=== PATIENT | female | born 1970 | race Caucasian/White ===

== ENCOUNTER → 2016-06-08 | Outpatient (CLI) | payer OTHER ==
--- NOTE | 2016-06-08 10:55 | REP ---
LEFT KNEE, FIVE VIEWS: HISTORY: Fall. COMPARISON: 11/12/2013. There is no acute fracture or dislocation. The joint spaces are normal in appearance. IMPRESSION: There is no acute fracture or dislocation. Signed by Kraig Quiroga MD 06/08/2016 11:10 A
== END ==
LOC: M WUC 10:04
PROVIDERS: ATTEND Physician Assistant
DX: S80.02XA Contusion of left knee, initial encounter (principal); X58.XXXA Exposure to other specified factors, initial encounter; Y92.89 Other specified places as the place of occurrence of the external cause; Y93.89 Activity, other specified; Y99.8 Other external cause status

== ENCOUNTER 2016-06-10 18:17 | Emergency (ER) | payer OTHER ==
[2016-06-10] MEDS ORDERED: ONDANSETRON 4 MG ORAL DISINTEGRATING TAB (S0181) As Ordered ONE (18:48)
[2016-06-10] MEDS ORDERED: KETOROLAC 30 MG/ML VIAL (J1885) As Ordered ONE (18:48)
--- NOTE | 2016-06-10 19:51 | EDDOCDS ---
Physician Documentation [facility] Name: Shabana Aguilar Age: 45 yrs Sex: Female : 1970 Arrival Date: 06/10/2016 Time: 18:17 Bed I10 / 23 Private MD: Suni Yu M. Disposition: 06/10/16 19:33 Discharged to Home/Self Care. Impression: Viral infection, unspecified - viral syndrome/gastroenteritis. - Condition is Stable. - Discharge Instructions: Viral Gastroenteritis, Viral Infections. - Prescriptions for ZOFRAN ODT 4 mg - dissolve 1 tablet by ORAL route 4 times per day As needed do not chew, do not swallow whole; 10 tablet. - Medication Reconciliation, Work Release Form - 5 day, Local Pharmacy Hours form. - Follow up: Suni Yu; When: Call to arrange an appointment; Reason: Recheck today's complaints, Continuance of care. - Problem is new. - Symptoms have improved. - Notes: Keep hydrated Alternate Ibuprofen with Tylenol, as needed, for pain or fever >101.5 Return to the ED for worsening symptoms Historical: - Allergies: Latex; PENICILLINS; - Home Meds: 1. Motrin 800 mg Oral tab 3 times per day (Last dose: 06/09/2016) 2. Zomig ZMT 2.5 mg oral TbDL 1 tab - PMHx: Migraine Headaches; - PSHx: none; - Social history: Smoking status: Patient states was never smoker of tobacco. No barriers to communication noted, The patient speaks fluent Japanese, Speaks appropriately for age. - Family history: Not pertinent. - : The pt / caregiver states he / she is not on anticoagulants. Home medication list is obtained from the patient. - Exposure Risk Screening:: None identified. 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 6 in. (167.64 cm) (R); Pain 5/10; 19:49 BP 112 / 65; Pulse 109; Resp 18; Temp 101.1; Pulse Ox 93% on R/A; Pain 5/10; rn1 18:19 Body Mass Index 31.47 (88.45 kg, 167.64 cm) gr2 MDM: 18:45 Ondansetron ODT Oral Disintegrating Tablet 4 mg PO once ordered. le 18:45 ketorolac 60 mg IM once ordered. le 18:45 Fluid Challenge ordered. le 19:09 Financial registration complete. [facility] 19:14 [facility] Payment Agreement was scanned into [employer] and attached to record. [facility] Administered Medications: 18:52 Drug: Ondansetron ODT 4 mg [ondansetron 4 mg disintegrating tablet (1 tabs)] Route: PO; pml 18:52 Drug: ketorolac 60 mg [ketorolac 30 mg/mL (1 mL) injection solution (2 mL)] Route: IM; pml Site: right gluteus; Signatures: Radha Vargas RN RN srm Westcott, Lisa, AUTOMOTIVE TIRE TESTING SUPERVISOR Ruth Joseph RN RN dsf Quay, Paulina, RN RN pml Hook, Sandra [facility] The chart was reviewed and I authenticate all verbal orders and agree with the evaluation and treatment provided.Attachments: 19:14 [facility] Payment Agreement [facility] MTDD
--- NOTE | 2016-06-10 19:51 | EDDOCDS ---
Nurse's Notes [facility] Name: Shabana Aguilar Age: 45 yrs Sex: Female : 1970 Arrival Date: 06/10/2016 Time: 18:17 Bed I10 / 23 Private MD: Suni Yu M. Diagnosis: Viral infection, unspecified-viral syndrome/gastroenteritis Presentation: 06/10 18:20 Presenting complaint: Patient states: went to urgent care and dx with flu. couldn't get srm to pharmacy to get tamiflu so was told to come here and get a dose. Adult Sepsis Screening: The patient does not have new or worsening altered mentation. Patient's respiratory rate is less than 22. Systolic blood pressure is greater than 100. Patient has a qSOFA score of 0- Negative Sepsis Screen. Suicide/Homicide risk assessment- the patient denies having any suicidal and/or homicidal ideations and does not present with any other emotional, behavioral or mental health complaints. Status: Patient is not a clinical laboratory service teacher or dependent. Transition of care: Patient was received from [facility]. 18:20 Acuity: RAVINDER Level 5 srm 18:20 Method Of Arrival: Walkin/Carried/Asstd srm Triage Assessment: 18:23 General: Appears in no apparent distress, Behavior is appropriate for age, cooperative. srm Pain: Pain currently is 10 out of 10 on a pain scale. HIV screening NA for this visit Offered previously. 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 Motrin 800 mg Oral tab 3 times per day (Last dose: 06/09/2016) 2. Zomig ZMT 2.5 mg oral TbDL 1 tab - PMHx: Migraine Headaches; - PSHx: none; - Social history: Smoking status: Patient states was never smoker of tobacco. No barriers to communication noted, The patient speaks fluent Greek, Speaks appropriately for age. - Family history: Not pertinent. - : The pt / caregiver states he / she is not on anticoagulants. Home medication list is obtained from the patient. - Exposure Risk Screening:: None identified. Screenin:52 Screening information is obtained from the patient. Fall risk: No risks identified. pml Assistance ADL's: requires no assistance with activities of daily living. Abuse/DV Screen: The patient / caregiver reports he/she is: not in a situation that causes fear, pain or injury. Nutritional screening: No deficits noted. Advance Directives: Currently, there is no health care proxy. home support is adequate. Assessment: 18:52 General: Appears well nourished, well groomed, Behavior is appropriate for age, pml cooperative. Pain: Location: body aches. Neurological: Level of Consciousness is awake, alert, Oriented to person, place, time. Cardiovascular: Capillary refill < 3 seconds. Respiratory: Airway is patent Respiratory effort is even, unlabored. GI: Abdomen is non- distended. Derm: Skin is pink, warm & dry. 19:42 General: Appears ill, Behavior is appropriate for age, cooperative. Pain: Location: dsf head Pain currently is 8 out of 10 on a pain scale. Quality of pain is described as aching. Neurological: Level of Consciousness is awake, alert, Oriented to person, place, time. Cardiovascular: Capillary refill < 3 seconds. Respiratory: Airway is patent Respiratory effort is even, unlabored, Respiratory pattern is regular, symmetrical. Derm: Skin is pink, warm & dry. Vital Signs: 18:19 BP 110 / 63; Pulse 122; Resp 18 S; Temp 101.6(O); Pulse Ox 96% on R/A; Weight 88.45 kg gr2 (R); Height 5 ft. 6 in. (167.64 cm) (R); Pain 5/10; 19:49 BP 112 / 65; Pulse 109; Resp 18; Temp 101.1; Pulse Ox 93% on R/A; Pain 5/10; rn1 18:19 Body Mass Index 31.47 (88.45 kg, 167.64 cm) gr2 Vitals: 18:19 Log In Time: June 10, 2016 at 18:19. gr2 ED Course: 18:18 Patient visited by Alverto Jensen. gr2 18:18 Suni Yu is Private Physician. gr2 18:18 Patient moved to Waiting gr2 18:20 Patient visited by Alverto Jensen. gr2 18:20 Patient moved to Pre RCE gr2 18:23 Triage Initiated srm 18:32 [facility] Fore[facility] le 18:32 Patient moved to I10 23 le 18:36 Patient visited by Maria De Jesus Foreman FNP. le 18:36 Patient visited by Maria De Jesus Foreman FNP. le 18:52 The patient / caregiver is instructed regarding the plan of care and ED course. Patient pml has correct armband on for positive identification. Bed in low position. Call light in reach. 18:52 No IV's were initiated during this patient's visit. No procedures done that require pml assistance. 18:54 Patient visited by Mandi Michelle,TARA. pml 19:14 [facility] Payment Agreement was scanned into [employer] and attached to record. [facility] 19:33 Suni Yu is Referral Physician. le Administered Medications: 18:52 Drug: Ondansetron ODT 4 mg [ondansetron 4 mg disintegrating tablet (1 tabs)] Route: PO; pml 18:52 Drug: ketorolac 60 mg [ketorolac 30 mg/mL (1 mL) injection solution (2 mL)] Route: IM; pml Site: right gluteus; Order Results: There are currently no results for this order. Outcome: 19:33 Discharge ordered by Provider. le 19:42 Discharge Assessment: Patient awake, alert and oriented x 3. No cognitive and/or dsf functional deficits noted. Patient verbalized understanding of disposition instructions. patient administered narcotics - no. The following High Risk Discharge criteria are identified: None. Discharged to home ambulatory. Condition: stable. Discharge instructions given to patient, Instructed on discharge instructions, follow up and referral plans. medication usage, Demonstrated understanding of instructions, medications, Pt was receptive of discharge instructions/ teaching. Prescriptions given X 1, Work note provided to patient. No special radiology studies were completed. Property sent home with patient. 19:50 Patient left the ED. dsf Signatures: Radha Vargas, RN TARA [facility] Maria De Jesus Foreman FNP FNP le Fuller, Desiree, RN RN dsf Mandi Michelle,Alverto Padilla RN gr2 Conchita Nolasco [facility] Bronson Box rn1 MTDD
--- NOTE | 2016-06-12 20:51 | EDDOCDS ---
Nurse's Notes [facility] Name: Shabana Aguilar Age: 45 yrs Sex: Female : 1970 Arrival Date: 06/10/2016 Time: 18:17 Bed I10 / 23 Private MD: Suni Yu M. Diagnosis: Viral infection, unspecified-viral syndrome/gastroenteritis Presentation: 06/10 18:20 Presenting complaint: Patient states: went to urgent care and dx with flu. couldn't get srm to pharmacy to get tamiflu so was told to come here and get a dose. Adult Sepsis Screening: The patient does not have new or worsening altered mentation. Patient's respiratory rate is less than 22. Systolic blood pressure is greater than 100. Patient has a qSOFA score of 0- Negative Sepsis Screen. Suicide/Homicide risk assessment- the patient denies having any suicidal and/or homicidal ideations and does not present with any other emotional, behavioral or mental health complaints. Status: Patient is not a account services coordinator or dependent. Transition of care: Patient was received from [facility]. 18:20 Acuity: RAVINDER Level 5 srm 18:20 Method Of Arrival: Walkin/Carried/Asstd srm Triage Assessment: 18:23 General: Appears in no apparent distress, Behavior is appropriate for age, cooperative. srm Pain: Pain currently is 10 out of 10 on a pain scale. HIV screening NA for this visit Offered previously. 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 Motrin 800 mg Oral tab 3 times per day (Last dose: 06/09/2016) 2. Zomig ZMT 2.5 mg oral TbDL 1 tab - PMHx: Migraine Headaches; - PSHx: none; - Social history: Smoking status: Patient states was never smoker of tobacco. No barriers to communication noted, The patient speaks fluent Khmer, Speaks appropriately for age. - Family history: Not pertinent. - : The pt / caregiver states he / she is not on anticoagulants. Home medication list is obtained from the patient. - Exposure Risk Screening:: None identified. Screenin:52 Screening information is obtained from the patient. Fall risk: No risks identified. pml Assistance ADL's: requires no assistance with activities of daily living. Abuse/DV Screen: The patient / caregiver reports he/she is: not in a situation that causes fear, pain or injury. Nutritional screening: No deficits noted. Advance Directives: Currently, there is no health care proxy. home support is adequate. Assessment: 18:52 General: Appears well nourished, well groomed, Behavior is appropriate for age, pml cooperative. Pain: Location: body aches. Neurological: Level of Consciousness is awake, alert, Oriented to person, place, time. Cardiovascular: Capillary refill < 3 seconds. Respiratory: Airway is patent Respiratory effort is even, unlabored. GI: Abdomen is non- distended. Derm: Skin is pink, warm & dry. 19:42 General: Appears ill, Behavior is appropriate for age, cooperative. Pain: Location: dsf head Pain currently is 8 out of 10 on a pain scale. Quality of pain is described as aching. Neurological: Level of Consciousness is awake, alert, Oriented to person, place, time. Cardiovascular: Capillary refill < 3 seconds. Respiratory: Airway is patent Respiratory effort is even, unlabored, Respiratory pattern is regular, symmetrical. Derm: Skin is pink, warm & dry. Vital Signs: 18:19 BP 110 / 63; Pulse 122; Resp 18 S; Temp 101.6(O); Pulse Ox 96% on R/A; Weight 88.45 kg gr2 (R); Height 5 ft. 6 in. (167.64 cm) (R); Pain 5/10; 19:49 BP 112 / 65; Pulse 109; Resp 18; Temp 101.1; Pulse Ox 93% on R/A; Pain 5/10; rn1 18:19 Body Mass Index 31.47 (88.45 kg, 167.64 cm) gr2 Vitals: 18:19 Log In Time: June 10, 2016 at 18:19. gr2 ED Course: 18:18 Patient visited by Alverto Jensen. gr2 18:18 Suni Yu is Private Physician. gr2 18:18 Patient moved to Waiting gr2 18:20 Patient visited by Alverto Jensen. gr2 18:20 Patient moved to Pre RCE gr2 18:23 Triage Initiated srm 18:32 [facility] De Jesus Foreman [facility] le 18:32 Patient moved to I10 23 le 18:36 Patient visited by Maria De Jesus Foreman FNP. le 18:36 Patient visited by Maria De Jesus Foreman FNP. le 18:52 The patient / caregiver is instructed regarding the plan of care and ED course. Patient pml has correct armband on for positive identification. Bed in low position. Call light in reach. 18:52 No IV's were initiated during this patient's visit. No procedures done that require pml assistance. 18:54 Patient visited by Mandi Michelle,TARA. pml 19:14 [facility] Payment Agreement was scanned into [employer] and attached to record. [facility] 19:33 Suni Yu is Referral Physician. le 02 11:45 T-Sheet-- Draft Copy was scanned into [employer] and attached to record. gb Administered Medications: 06/10 18:52 Drug: Ondansetron ODT 4 mg [ondansetron 4 mg disintegrating tablet (1 tabs)] Route: PO; pml 18:52 Drug: ketorolac 60 mg [ketorolac 30 mg/mL (1 mL) injection solution (2 mL)] Route: IM; pml Site: right gluteus; Order Results: There are currently no results for this order. Outcome: 19:33 Discharge ordered by Provider. le 19:42 Discharge Assessment: Patient awake, alert and oriented x 3. No cognitive and/or dsf functional deficits noted. Patient verbalized understanding of disposition instructions. patient administered narcotics - no. The following High Risk Discharge criteria are identified: None. Discharged to home ambulatory. Condition: stable. Discharge instructions given to patient, Instructed on discharge instructions, follow up and referral plans. medication usage, Demonstrated understanding of instructions, medications, Pt was receptive of discharge instructions/ teaching. Prescriptions given X 1, Work note provided to patient. No special radiology studies were completed. Property sent home with patient. 19:50 Patient left the ED. dsf Signatures: Rdaha Vargas, RN TARA [facility] Smita Bacon, Reg Reg Maria De Jesus Foreman FNP FNP le Fuller, Desiree, RN RN dsf Mandi Michelle,TARA RN pml Alverto Jensen gr2 Conchita Nolasco [facility] [place] Box rn1 Chart Complete MTDD
--- NOTE | 2016-06-12 20:51 | EDDOCDS ---
Physician Documentation [facility] Name: Shabana Aguilar Age: 45 yrs Sex: Female : 1970 Arrival Date: 06/10/2016 Time: 18:17 Bed I10 / 23 Private MD: Suni Yu M. Disposition: 06/10/16 19:33 Discharged to Home/Self Care. Impression: Viral infection, unspecified - viral syndrome/gastroenteritis. - Condition is Stable. - Discharge Instructions: Viral Gastroenteritis, Viral Infections. - Prescriptions for ZOFRAN ODT 4 mg - dissolve 1 tablet by ORAL route 4 times per day As needed do not chew, do not swallow whole; 10 tablet. - Medication Reconciliation, Work Release Form - 5 day, Local Pharmacy Hours form. - Follow up: Suni Yu; When: Call to arrange an appointment; Reason: Recheck today's complaints, Continuance of care. - Problem is new. - Symptoms have improved. - Notes: Keep hydrated Alternate Ibuprofen with Tylenol, as needed, for pain or fever >101.5 Return to the ED for worsening symptoms Historical: - Allergies: Latex; PENICILLINS; - Home Meds: 1. Motrin 800 mg Oral tab 3 times per day (Last dose: 06/09/2016) 2. Zomig ZMT 2.5 mg oral TbDL 1 tab - PMHx: Migraine Headaches; - PSHx: none; - Social history: Smoking status: Patient states was never smoker of tobacco. No barriers to communication noted, The patient speaks fluent Sinhala, Speaks appropriately for age. - Family history: Not pertinent. - : The pt / caregiver states he / she is not on anticoagulants. Home medication list is obtained from the patient. - Exposure Risk Screening:: None identified. 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 6 in. (167.64 cm) (R); Pain 5/10; 19:49 BP 112 / 65; Pulse 109; Resp 18; Temp 101.1; Pulse Ox 93% on R/A; Pain 5/10; rn1 18:19 Body Mass Index 31.47 (88.45 kg, 167.64 cm) gr2 MDM: 18:45 Ondansetron ODT Oral Disintegrating Tablet 4 mg PO once ordered. le 18:45 ketorolac 60 mg IM once ordered. le 18:45 Fluid Challenge ordered. le 19:09 Financial registration complete. [facility] : [facility] Payment Agreement was scanned into [employer] and attached to record. [facility] 06/11 11:45 T-Sheet-- Draft Copy was scanned into [employer] and attached to record. gb Administered Medications: 06/10 18:52 Drug: Ondansetron ODT 4 mg [ondansetron 4 mg disintegrating tablet (1 tabs)] Route: PO; pml 18:52 Drug: ketorolac 60 mg [ketorolac 30 mg/mL (1 mL) injection solution (2 mL)] Route: IM; pml Site: right gluteus; Signatures: Radha Vargas, RN RN Smita Manriquez, Reg Reg Maria De Jesus Erickson, TOURIST CAMP ATTENDANT TOURIST CAMP ATTENDANT Ruth KothariRN Mandi Clay RN RN Conchita Damon [facility] The chart was reviewed and I authenticate all verbal orders and agree with the evaluation and treatment provided.Attachments: : [facility] Payment Agreement [facility] 06/11 11:45 T-Sheet-- Draft Copy gb Chart Complete MTDD
--- NOTE | 2016-06-12 20:51 | EDDOCDS ---
Physician Documentation [facility] Name: Shabana Aguilar Age: 45 yrs Sex: Female : 1970 Arrival Date: 06/10/2016 Time: 18:17 Bed I10 / 23 Private MD: Suni Yu M. Disposition: 06/10/16 19:33 Discharged to Home/Self Care. Impression: Viral infection, unspecified - viral syndrome/gastroenteritis. - Condition is Stable. - Discharge Instructions: Viral Gastroenteritis, Viral Infections. - Prescriptions for ZOFRAN ODT 4 mg - dissolve 1 tablet by ORAL route 4 times per day As needed do not chew, do not swallow whole; 10 tablet. - Medication Reconciliation, Work Release Form - 5 day, Local Pharmacy Hours form. - Follow up: Suni Yu; When: Call to arrange an appointment; Reason: Recheck today's complaints, Continuance of care. - Problem is new. - Symptoms have improved. - Notes: Keep hydrated Alternate Ibuprofen with Tylenol, as needed, for pain or fever >101.5 Return to the ED for worsening symptoms Historical: - Allergies: Latex; PENICILLINS; - Home Meds: 1. Motrin 800 mg Oral tab 3 times per day (Last dose: 06/09/2016) 2. Zomig ZMT 2.5 mg oral TbDL 1 tab - PMHx: Migraine Headaches; - PSHx: none; - Social history: Smoking status: Patient states was never smoker of tobacco. No barriers to communication noted, The patient speaks fluent Irish, Speaks appropriately for age. - Family history: Not pertinent. - : The pt / caregiver states he / she is not on anticoagulants. Home medication list is obtained from the patient. - Exposure Risk Screening:: None identified. 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 6 in. (167.64 cm) (R); Pain 5/10; 19:49 BP 112 / 65; Pulse 109; Resp 18; Temp 101.1; Pulse Ox 93% on R/A; Pain 5/10; rn1 18:19 Body Mass Index 31.47 (88.45 kg, 167.64 cm) gr2 MDM: 18:45 Ondansetron ODT Oral Disintegrating Tablet 4 mg PO once ordered. le 18:45 ketorolac 60 mg IM once ordered. le 18:45 Fluid Challenge ordered. le 19:09 Financial registration complete. [facility] : [facility] Payment Agreement was scanned into [employer] and attached to record. [facility] 06/11 11:45 T-Sheet-- Draft Copy was scanned into [employer] and attached to record. gb Administered Medications: 06/10 18:52 Drug: Ondansetron ODT 4 mg [ondansetron 4 mg disintegrating tablet (1 tabs)] Route: PO; pml 18:52 Drug: ketorolac 60 mg [ketorolac 30 mg/mL (1 mL) injection solution (2 mL)] Route: IM; pml Site: right gluteus; Signatures: Radha Vargas, RN RN Smita Manriquez, Reg Reg Maria De Jesus Erickson, EXPERIMENTAL MECHANIC ELECTRICAL EXPERIMENTAL MECHANIC ELECTRICAL Ruth KothariRN Mandi Clay RN RN Conchita Damon [facility] The chart was reviewed and I authenticate all verbal orders and agree with the evaluation and treatment provided.Attachments: : [facility] Payment Agreement [facility] 06/11 11:45 T-Sheet-- Draft Copy gb Chart Complete MTDD
== END 2016-06-10 19:50 | disposition home or self-care (01) ==
LOC: M ED 18:17
DX: A08.4 Viral intestinal infection, unspecified (principal); G43.909 Migraine, unspecified, not intractable, without status migrainosus; Z91.040 Latex allergy status; Z88.0 Allergy status to penicillin
CPT/HCPCS: 96372; 99283; J1885

== ENCOUNTER → 2016-11-16 | Outpatient (CLI) | payer OTHER ==
[2016-11-16 13:42] LABS: LUTEINIZING HORMONE 41.2 mIU/mL
[2016-11-16 13:43] LABS: FOLLICLE STIMULATING HORMONE 93.3 mIU/mL
== END ==
LOC: M WUC 11:29
PROVIDERS: ATTEND Nurse Practitioner Women's Health
DX: N91.2 Amenorrhea, unspecified (principal); Z11.3 Encounter for screening for infections with a predominantly sexual mode of transmission

== ENCOUNTER 2018-01-21 20:28 | Emergency (ER) | payer OTHER ==
[2018-01-21] MEDS: NS 1,000 ML IV (22:09)
[2018-01-21] MEDS: PANTOPRAZOLE 40MG INJ (PROTONIX) (C9113) IV (22:09)
[2018-01-21] MEDS: GI COCKTAIL 50ML BTL(HYOSCYAMINE/MAALOX/LIDOCAINE VISCOUS)(1:3:1) PO (22:10)
[2018-01-21] MEDS: KETOROLAC 30 MG/ML VIAL (J1885) IV (22:10)
[2018-01-21 22:34] LABS: BASO % 0.4 % (0.0-1.0); EOS # 0.1 10^3/uL (0.0-0.50); HEMATOCRIT 42.4 % (36.0-47.0); HEMOGLOBIN 13.6 g/dl (12.0-15.5); IMMATURE GRANULOCYTE % 1.2 % (0-3.0); LYMPH # 2.9 10^3/uL (1.5-4.5); LYMPH % 39.2 % (24.0-44.0); MEAN CORPUSCULAR HEMOGLOBIN 29.3 pg (27.0-33.0); MEAN CORPUSCULAR HGB CONC 32.1 g/dl (32.0-36.5); MEAN CORPUSCULAR VOLUME 91.4 fl (80.0-96.0); MONO # 0.4 10^3/uL (0.0-0.8); MONO % 5.8 % (0.0-5.0); NEUTROPHILS # 3.8 10^3/uL (1.8-7.7); NEUTROPHILS % 52.4 % (36.0-66.0); PLATELET COUNT, AUTOMATED 231 10^3/uL (150-450); RED BLOOD COUNT 4.64 10^6/uL (4.00-5.40); RED CELL DISTRIBUTION WIDTH 13.3 % (11.5-14.5); WHITE BLOOD COUNT 7.3 10^3/uL (4.0-10.0)
[2018-01-21 22:45] LABS: D-DIMER QUANT 357.8 ng/ml (<500)
[2018-01-21 23:08] LABS: KETONE, URINE AUTO RFX NEGATIVE (NEGATIVE); LEUKOCYTE ESTERASE UR AUTO RFX NEGATIVE (NEGATIVE); NITRITE, URINE AUTO RFX NEGATIVE (NEGATIVE); RBC, URINE AUTO RFX 1 /HPF (0-3); SPECIFIC GRAVITY UR AUTO RFX 1.005 (1.002-1.035); SQUAM EPITHELIAL CELL UR AURFX 0 /HPF (0-6); WBC, URINE AUTO RFX 0 /HPF (0-3)
[2018-01-22] MEDS: MORPHINE 4 MG/ML 1ML VIAL/SYRINGE (J2270) IV (00:03)
[2018-01-22 00:58] LABS: BLOOD UREA NITROGEN 11 MG/DL (7-18); CHLORIDE LEVEL 109 MEQ/L (98-107); CREATININE FOR GFR 0.78 MG/DL (0.55-1.30); GLOMERULAR FILTRATION RATE > 60.0 (>58); GLUCOSE, FASTING 99 MG/DL (70-100); SODIUM LEVEL 141 MEQ/L (136-145)
[2018-01-22 00:59] LABS: ALT/SGPT 39 U/L (12-78); AST/SGOT 23 U/L (7-37); CALCIUM LEVEL 8.2 MG/DL (8.5-10.1); CK-MB VALUE MASS < 1.0 NG/ML (<3.6); CPK CREATINE PHOSPHOKINASE 100 U/L (26-192)
[2018-01-22 01:00] LABS: ALBUMIN 3.6 GM/DL (3.2-5.2); ALBUMIN/GLOBULIN RATIO 0.95 (1.00-1.93); ALKALINE PHOSPHATASE 98 U/L (45-117); BILIRUBIN,DIRECT < 0.1 MG/DL (0.0-0.2); BILIRUBIN,TOTAL 0.2 MG/DL (0.2-1.0); TOTAL PROTEIN 7.4 GM/DL (6.4-8.2); TROPONIN I < 0.02 NG/ML (< 0.10)
[2018-01-22 01:01] LABS: CARBON DIOXIDE LEVEL 25 MEQ/L (21-32); LIPASE 137 U/L (73-393)
[2018-01-22 01:03] LABS: ANION GAP 7 MEQ/L (8-16)
== END 2018-01-22 01:41 | disposition home or self-care (01) ==
LOC: M ED 01-22 01:41
DX: R10.13 Epigastric pain (principal); R94.31 Abnormal electrocardiogram [ECG] [EKG]; E06.3 Autoimmune thyroiditis; Z84.2 Family history of other diseases of the genitourinary system; Z91.040 Latex allergy status; Z88.0 Allergy status to penicillin
CPT/HCPCS: C9113

== ENCOUNTER → 2018-01-23 | Outpatient (REF) | payer OTHER ==
[2018-01-23 18:26] LABS: APPEARANCE, URINE CLEAR (CLEAR); BACTERIA, URINE AUTO 1+ (NEGATIVE); BILIRUBIN, URINE AUTO NEGATIVE (NEGATIVE); BLOOD, URINE BLOOD NEGATIVE (NEGATIVE); COLOR, URINE STRAW (YELLOW); GLUCOSE, URINE (UA) AUTO NEGATIVE (NEGATIVE); KETONE, URINE AUTO NEGATIVE (NEGATIVE); LEUKOCYTE ESTERASE, URINE AUTO NEGATIVE (NEGATIVE); NITRITE, URINE AUTO NEGATIVE (NEGATIVE); PROTEIN, URINE AUTO NEGATIVE (NEGATIVE); RBC, URINE AUTO 0 /HPF (0-3); SPECIFIC GRAVITY URINE AUTO 1.011 (1.002-1.035); SQUAMOUS EPITHELIAL CELL UR AU 0 /HPF (0-6); UROBILINOGEN, URINE AUTO 0.2 mg/dL (0.0-2.0); WBC, URINE AUTO 0 /HPF (0-3)
== END ==
LOC: M SFHCPLAZ 17:07
DX: R35.0 Frequency of micturition (principal)

== ENCOUNTER → 2018-01-29 | Outpatient (REF) | payer OTHER ==
[2018-02-01 00:06] LABS: H PYLORI STOOL ANTIGEN Negative (Negative)
== END ==
LOC: M SFHCPLAZ 09:28
DX: R10.13 Epigastric pain (principal)

== ENCOUNTER → 2018-01-30 | Outpatient (CLI) | payer OTHER | LOC: M RAD 07:43 | DX: R10.11 Right upper quadrant pain (principal) ==

== ENCOUNTER → 2018-12-16 | Outpatient (CLI) | payer OTHER ==
--- NOTE | 2018-12-17 11:58 | REP ---
Clinical: Right anterior knee pain Technique: AP, lateral, bilateral oblique and sunrise views. Findings: The osseous structures and joint spaces are intact and normal. There is no evidence for acute fracture or dislocation. No joint effusion is appreciated. Surrounding soft tissues are unremarkable. No subcutaneous emphysema or radiodense foreign body. Impression: Essentially age-appropriate examination. No obvious osteoarthritic degenerative changes. Electronically Signed by Salas Cortes MD 12/17/2018 02:44 A
== END ==
LOC: M RAD 17:06
PROVIDERS: ATTEND Student in an Organized Health Care Education/Training Program
DX: M25.561 Pain in right knee (principal)

== ENCOUNTER → 2019-01-06 | Outpatient (CLI) | payer OTHER ==
--- NOTE | 2019-01-06 12:04 | REP ---
MRI RIGHT KNEE: TECHNIQUE: Axial proton density fat saturation, sagittal proton density T2 STIR, water excitation, coronal proton density, proton density fat saturation. I do not see evidence of a meniscal tear. The cruciate and collateral ligaments are intact. The extensor mechanism is intact. There is moderate diffuse chondromalacia of the medial femoral condyle and tibial plateau. There is mild diffuse chondromalacia of the lateral femoral condyle and tibial plateau. Medial and lateral patellar retinacula are intact. There is no bone marrow edema or occult fracture. There is a moderate joint effusion. There is a suprapatellar plica. A small amount of fluid extends into the proximal tibial fibular articulation. There is no popliteal cyst. IMPRESSION: No evidence of meniscal tear. Cruciate and collateral ligaments intact. 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 Moderate joint effusion. Suprapatellar plica. Electronically Signed by Marco Antonio Stover MD 01/07/2019 10:10 A
== END ==
LOC: M RAD 09:22
PROVIDERS: ATTEND Student in an Organized Health Care Education/Training Program
DX: M25.561 Pain in right knee (principal)

== ENCOUNTER → 2019-01-19 | Outpatient (CLI) | payer OTHER ==
--- NOTE | 2019-01-19 09:48 | REP ---
THYROID ULTRASOUND: Real-time sonographic of the thyroid performed. Comparison 03/02/2015. Right lobe measures 5.0 x 1.7 x 1.9 cm and left lobe 5.0 x 1.9 x 1.7 cm, similar to the prior study. Echotexture is diffusely heterogeneous. There appears to be increased vascularity diffusely with Doppler evaluation. Superiorly in the right lobe a hyperechoic oval nodule measures 1.1 x 0.5 x 0.7 cm, with a 7 x 5 x 6 mm hyperechoic nodule just inferior to that. In the left upper pole there are two adjacent oval nodules, the larger is posterior measuring 1.4 x 0.6 x 1.0 cm similar to the prior study. A more anterior nodule measures 8 x 5 x 6 mm and appears to have decreased in size. More inferiorly and posteriorly in the left lobe there is a 7 mm nodule which is unchanged. IMPRESSION: Bilateral hyperechoic nodules as discussed above. Two on the right were not appreciated on the prior study. Three on the left are visualized, one subcentimeter nodule in the upper aspect has decreased in size and the two others are stable. Electronically Signed by Marco Antonio Stover MD 01/19/2019 04:32 P
== END ==
LOC: M RAD 07:16
PROVIDERS: ATTEND Internal Medicine Endocrinology, Diabetes & Metabolism
DX: E06.3 Autoimmune thyroiditis (principal); E04.2 Nontoxic multinodular goiter

== ENCOUNTER → 2019-03-02 | Outpatient (CLI) | payer OTHER ==
[2019-03-02 09:51] LABS: C REACTIVE PROTEIN QUANTITATIV 1.44 MG/DL (0.00-0.30)
[2019-03-02 10:26] LABS: FOLATE 12.5 NG/ML (>5.4)
== END ==
LOC: M LAB 08:00
PROVIDERS: ATTEND Student in an Organized Health Care Education/Training Program
DX: M25.561 Pain in right knee (principal)

== ENCOUNTER → 2019-03-04 | Outpatient (REF) | payer OTHER ==
[2019-03-04 16:12] LABS: BASO % 0.4 % (0.0-1.0); EOS # 0.1 10^3/uL (0.0-0.5); EOS % 1.1 % (0.0-3.0); HEMATOCRIT 38.7 % (36.0-47.0); LYMPH # 1.6 10^3/uL (1.5-5.0); LYMPH % 33.8 % (24.0-44.0); MEAN CORPUSCULAR HEMOGLOBIN 29.6 pg (27.0-33.0); MEAN CORPUSCULAR VOLUME 95.3 fl (80.0-96.0); MONO # 0.4 10^3/uL (0.0-0.8); MONO % 7.8 % (0.0-5.0); NEUTROPHILS # 2.6 10^3/uL (1.5-8.5); NEUTROPHILS % 56.7 % (36.0-66.0); PLATELET COUNT, AUTOMATED 289 10^3/uL (150-450); RED BLOOD COUNT 4.06 10^6/uL (4.00-5.40); WHITE BLOOD COUNT 4.6 10^3/uL (4.0-10.0)
== END ==
LOC: M LABDRAW1 15:52
PROVIDERS: ATTEND Orthopaedic Surgery
DX: M17.11 Unilateral primary osteoarthritis, right knee (principal)

== ENCOUNTER → 2019-05-05 | Outpatient (CLI) | payer OTHER ==
--- NOTE | 2019-05-05 16:40 | REPMRS ---
Patient History The patient states she had a clinical breast exam in 04/2019. Patient is postmenopausal. No known family history of cancer. No Hormone Replacement Therapy Digital Woman Screen Mammo: May 05, 2019 - Exam #: [id number] Bilateral CC and MLO view(s) were taken. Technologist: Shabana Fung, Technologist Prior study comparison: March 11, 2015, digital woman screen mammo performed at [facility], [place]. FINDINGS: There are scattered fibroglandular densities. There has been no change in the appearance of the mammogram from the prior studies. There is a mild amount of scattered fibroglandular density which is fairly symmetric. There is no interval development of dominant mass, architectural distortion, or grouped microcalcification suggestive of malignancy. 3-D tomosynthesis shows no additional findings. Assessment: BI-RADS/ACR category 1 mammogram. Negative Mammogram. Recommendation Routine screening mammogram of both breasts in 1 year (for women over age 40). This patient's Lifetime Breast Cancer Risk is estimated at 8.4 %. This mammogram was interpreted with the aid of an FDA-approved computer-aided dectection system. Electronically Signed By: Camron Lackey MD 05/05/19 1640
== END ==
LOC: M WHC 13:15
PROVIDERS: ATTEND Nurse Practitioner Women's Health
DX: Z12.31 Encounter for screening mammogram for malignant neoplasm of breast (principal)

== ENCOUNTER → 2019-05-05 | Outpatient (CLI) | payer OTHER ==
--- NOTE | 2019-05-05 10:23 | REP ---
MRI RIGHT FEMUR WITHOUT CONTRAST: HISTORY: Numbness in the right thigh from the hip to the knee. Question lesion of the femoral nerve. Rule out mass. TECHNIQUE: Axial, coronal, and sagittal imaging planes are utilized. T1- and T2-weighted scans are included with and without fat saturation. The study extends from above the hip joint proximally to knee joint distally. FINDINGS: Cortical and medullary bone signal intensity are normal in the femur and visualized right hemipelvis. There is no evidence of lower pelvic mass, inguinal adenopathy, or vascular lesion. Skeletal muscle is normal in signal intensity on T1- and T2-weighted scans. There is a knee joint effusion. No significant hip joint fluid is seen. There is minimal T2 edema at the hamstring tendon insertion just below the ischium. No katelyn muscle tear or tendon disruption is seen. No other focus of soft tissue edema is appreciated. There is no evidence of mass along the femoral vessels or elsewhere. IMPRESSION: No soft tissue mass seen. Knee joint effusion noted. Minimal edema at the hamstring tendon insertion. Electronically Signed by Cory Lackey MD 05/05/2019 01:08 P
== END ==
LOC: M RAD 07:29
PROVIDERS: ATTEND Orthopaedic Surgery
DX: Z12.4 Encounter for screening for malignant neoplasm of cervix (principal)

== ENCOUNTER → 2019-05-05 | Outpatient (REF) | payer OTHER | LOC: M SFHCWAGY 16:49 | PROVIDERS: ATTEND Nurse Practitioner Women's Health | DX: Z12.4 Encounter for screening for malignant neoplasm of cervix (principal) ==

== ENCOUNTER → 2020-06-30 | Outpatient (REF) | payer OTHER | LOC: M LAB REF 21:21 | PROVIDERS: ATTEND Physician Assistant | DX: Z11.3 Encounter for screening for infections with a predominantly sexual mode of transmission (principal) ==

== ENCOUNTER → 2021-07-03 | Outpatient (REF) | payer MEDICAID, OTHER | LOC: M SFHCPLAZ 17:05 | PROVIDERS: ATTEND Physician Assistant | DX: R50.9 Fever, unspecified (principal) ==

== ENCOUNTER → 2021-07-03 | Outpatient (CLI) | payer MEDICAID, OTHER ==
[2021-07-03 17:53] LABS: BASO % 0.5 % (0.0-1.0); EOS # 0.1 10^3/uL (0.0-0.5); EOS % 1.4 % (0.0-3.0); HEMATOCRIT 37.8 % (36.0-47.0); HEMOGLOBIN 12.3 g/dl (12.0-15.5); LYMPH # 2.2 10^3/uL (1.5-5.0); LYMPH % 39.3 % (24.0-44.0); MEAN CORPUSCULAR HEMOGLOBIN 29.7 pg (27.0-33.0); MEAN CORPUSCULAR HGB CONC 32.5 g/dl (32.0-36.5); MEAN CORPUSCULAR VOLUME 91.3 fl (80.0-96.0); MONO # 0.3 10^3/uL (0.0-0.8); MONO % 5.5 % (2.0-8.0); NEUTROPHILS % 52.9 % (36.0-66.0); RED BLOOD COUNT 4.14 10^6/uL (4.00-5.40); WHITE BLOOD COUNT 5.7 10^3/uL (4.0-10.0)
[2021-07-03 18:30] LABS: ALBUMIN 4.1 GM/DL (3.2-5.2); ALT/SGPT 49 U/L (12-78); BILIRUBIN,TOTAL 0.2 MG/DL (0.2-1.0); BLOOD UREA NITROGEN 16 MG/DL (7-18); CALCIUM LEVEL 9.6 MG/DL (8.5-10.1); CARBON DIOXIDE LEVEL 28 MEQ/L (21-32); CHLORIDE LEVEL 110 MEQ/L (98-107); CREATININE FOR GFR 0.75 MG/DL (0.55-1.30); GLOMERULAR FILTRATION RATE > 60.0 (>58); GLUCOSE, FASTING 87 MG/DL (70-100); HEMOGLOBIN A1c 5.7 %; POTASSIUM SERUM 4.4 MEQ/L (3.5-5.1); SODIUM LEVEL 143 MEQ/L (136-145); TOTAL PROTEIN 7.5 GM/DL (6.4-8.2)
== END ==
LOC: M PLALAB 15:10
PROVIDERS: ATTEND Physician Assistant
DX: R50.9 Fever, unspecified (principal)

== ENCOUNTER → 2021-07-24 | Outpatient (CLI) | payer OTHER | LOC: M RAD 10:28 | PROVIDERS: ATTEND Student in an Organized Health Care Education/Training Program | DX: R60.0 Localized edema (principal) ==

== ENCOUNTER → 2021-09-20 | Outpatient (CLI) | payer OTHER | LOC: M RAD 12:42 | PROVIDERS: ATTEND Student in an Organized Health Care Education/Training Program | DX: I87.2 Venous insufficiency (chronic) (peripheral) (principal) ==

== ENCOUNTER → 2021-11-16 | Outpatient (CLI) | payer OTHER ==
[2021-11-16 11:08] LABS: BLOOD UREA NITROGEN 16 MG/DL (7-18); CALCIUM LEVEL 9.4 MG/DL (8.5-10.1); CARBON DIOXIDE LEVEL 27 MEQ/L (21-32); CHLORIDE LEVEL 110 MEQ/L (98-107); CHOLESTEROL LEVEL 215 MG/DL (<200); CHOLESTEROL RISK RATIO 2.828 (<5); CREATININE FOR GFR 0.79 MG/DL (0.55-1.30); GLOMERULAR FILTRATION RATE > 60.0 (>58); GLUCOSE, FASTING 99 MG/DL (70-100); HDL CHOLESTEROL 76 MG/DL (>40); LDL CHOLESTEROL 122 MG/DL (<100); NON-HDL-C 139 MG/DL; POTASSIUM SERUM 4.6 MEQ/L (3.5-5.1); SODIUM LEVEL 142 MEQ/L (136-145); TRIGLYCERIDES LEVEL 83 MG/DL (<150)
[2021-11-16 11:50] LABS: HEMOGLOBIN A1c 5.8 %
== END ==
LOC: M PLALAB 07:44
PROVIDERS: ATTEND Student in an Organized Health Care Education/Training Program
DX: Z00.00 Encounter for general adult medical examination without abnormal findings (principal); Z13.220 Encounter for screening for lipoid disorders; Z13.1 Encounter for screening for diabetes mellitus

== ENCOUNTER → 2022-03-28 | Outpatient (CLI) | payer OTHER ==
[2022-03-28 09:29] LABS: CHOLESTEROL RISK RATIO 2.96 (<5); HDL CHOLESTEROL 62.8 MG/DL (>40); LDL CHOLESTEROL 102.6 MG/DL (<100)
[2022-03-28 09:31] LABS: THYROID STIMULATING HORMONE 3.226 uIU/ML (0.55-4.78)
[2022-03-28 10:30] LABS: HEMOGLOBIN A1c 5.3 % (4.0-6.0)
== END ==
LOC: M LAB 06:49
PROVIDERS: ATTEND Student in an Organized Health Care Education/Training Program
DX: E06.9 Thyroiditis, unspecified (principal)

== ENCOUNTER → 2023-02-01 | Outpatient (REF) | payer OTHER | LOC: M SFHCPLAZ 18:39 | PROVIDERS: ATTEND Family Medicine | DX: Z28.21 Immunization not carried out because of patient refusal (principal); Z53.9 Procedure and treatment not carried out, unspecified reason ==

== ENCOUNTER → 2023-05-06 | Outpatient (REF) | payer OTHER | LOC: M SFHCPLAZ 11:03 | PROVIDERS: ATTEND Internal Medicine Hematology | DX: J06.9 Acute upper respiratory infection, unspecified (principal) ==

== ENCOUNTER 2023-10-26 15:02 | Emergency (ER) | payer OTHER ==
[~2023-10-26] VITALS: Ht 170.2 cm; Wt 99.4 kg
[2023-10-26] MEDS ORDERED: IBUP200C25 PO (15:33)
[2023-10-26] MEDS ORDERED: ACET1TAB55 PO (15:33)
[2023-10-26] MEDS: KETOROLAC 30 MG/ML 1ML VIAL IV ONE (17:27)
[2023-10-26] MEDS: KETOROLAC 30 MG/ML 1ML VIAL IM ONE (17:30)
[2023-10-26] MEDS ORDERED: CYCL5TAB PO (18:29)
[2023-10-26] MEDS ORDERED: IBUP-1022 PO (18:29)
[2023-10-26 18:41] VITALS: BP 120/76; TEMP 97.6; O2SAT 94
== END 2023-10-26 18:48 | disposition home or self-care (01) ==
LOC: M ED 15:02
DX: Z04.1 Encounter for examination and observation following transport accident (principal); V89.2XXA Person injured in unspecified motor-vehicle accident, traffic, initial encounter; Z88.0 Allergy status to penicillin; Z91.040 Latex allergy status; Z79.1 Long term (current) use of non-steroidal anti-inflammatories (NSAID); Z79.899 Other long term (current) drug therapy
CPT/HCPCS: 72110; 72220; 87486; 87581; 87633; 87798; 96372; 99283; J1885

== ENCOUNTER → 2023-11-20 | Outpatient (CLI) | payer OTHER ==
[~2023-11-20] MED LIST: ACET1TAB55 PO; CYCL5TAB PO; IBUP-1022 PO; IBUP200C25 PO
== END ==
LOC: M RAD 07:54
PROVIDERS: ATTEND Physician Assistant
DX: M54.50 Low back pain, unspecified (principal); M54.16 Radiculopathy, lumbar region; M62.830 Muscle spasm of back

== ENCOUNTER → 2024-02-04 | Outpatient (CLI) | payer OTHER ==
[2024-02-04 13:47] LABS: PLATELET COUNT, AUTOMATED 276 10^3/uL (150-450)
[2024-02-04 14:10] LABS: INR 0.99; PARTIAL THROMBOPLASTIN TIME 28.2 SECONDS (24.8-34.2); PROTHROMBIN TIME 12.8 SECONDS (12.5-14.5)
== END ==
LOC: M LAB 13:09
PROVIDERS: ATTEND Physician Assistant
DX: M54.16 Radiculopathy, lumbar region (principal)

== ENCOUNTER → 2024-03-09 | Outpatient (CLI) | payer OTHER ==
[~2024-03-09] MED LIST changes: -CYCL5TAB PO; +CYCL5TAB4 PO
== END ==
LOC: M PLAIMG 06:53
PROVIDERS: ATTEND Physician Assistant
DX: M47.26 Other spondylosis with radiculopathy, lumbar region (principal)

== ENCOUNTER → 2024-03-10 | Outpatient (REF) | payer OTHER | LOC: M SFHCPLAZ 16:33 | PROVIDERS: ATTEND Physician Assistant Medical | DX: J06.9 Acute upper respiratory infection, unspecified (principal) ==

== ENCOUNTER → 2024-03-24 | Outpatient (CLI) | payer OTHER | LOC: M RAD 06:08 | PROVIDERS: ATTEND Physician Assistant | DX: M47.26 Other spondylosis with radiculopathy, lumbar region (principal) ==

== ENCOUNTER → 2024-11-05 | Outpatient (REF) | payer OTHER | LOC: M SFHCPLAZ 14:47 | DX: Z53.9 Procedure and treatment not carried out, unspecified reason (principal) ==

== ENCOUNTER → 2024-11-13 | Outpatient (CLI) | payer OTHER ==
[2024-11-13 17:47] LABS: C REACTIVE PROTEIN QUANTITATIV 1.74 MG/DL (<1.0); CALCIUM LEVEL 9.5 MG/DL (8.5-10.1); CARBON DIOXIDE LEVEL 27 MMOL/L (20-31); CHLORIDE LEVEL 105 MMOL/L (98-107); CHOLESTEROL LEVEL 224 MG/DL (<200); CHOLESTEROL RISK RATIO 3.20 (<5); CREATININE FOR GFR 0.77 MG/DL (0.55-1.30); GLOMERULAR FILTRATION RATE > 90.0 (>51); LDL CHOLESTEROL 114.6 MG/DL (<100); NON-HDL-C 154.2 MG/DL; POTASSIUM SERUM 4.5 MMOL/L (3.5-5.1); SODIUM LEVEL 146 MMOL/L (136-145); TRIGLYCERIDES LEVEL 198 MG/DL (<150)
[2024-11-13 17:49] LABS: FREE T4 1.04 NG/DL (0.89-1.76)
[2024-11-13 17:57] LABS: PLATELET COUNT, AUTOMATED 277 10^3/uL (150-450)
[2024-11-13 18:12] LABS: ESTIMATED AVERAGE GLUCOSE 123.0 MG/DL (60-110)
== END ==
LOC: M PLALAB 15:41
DX: D64.9 Anemia, unspecified (principal); R76.8 Other specified abnormal immunological findings in serum; Z13.29 Encounter for screening for other suspected endocrine disorder; Z13.1 Encounter for screening for diabetes mellitus; Z13.220 Encounter for screening for lipoid disorders

== ENCOUNTER → 2024-11-14 | Outpatient (REF) | payer OTHER | LOC: M SFHCPLAZ 22:17 | PROVIDERS: ATTEND Family Medicine | DX: Z12.11 Encounter for screening for malignant neoplasm of colon (principal) ==

== ENCOUNTER 2024-11-20 14:58 | Emergency (ER) | payer OTHER ==
[~2024-11-20] VITALS: Ht 172.7 cm; Wt 90.9 kg
[2024-11-20] MEDS ORDERED: GABA-1171 PO (17:39)
[2024-11-20] MEDS ORDERED: HOME MED LIST COMPLETE! XX SCH (17:40)
[2024-11-20 17:55] VITALS: BP 137/78; TEMP 97.9; O2SAT 97
== END 2024-11-20 18:09 | disposition home or self-care (01) ==
LOC: M ED 14:58
DX: S92.254A Nondisplaced fracture of navicular [scaphoid] of right foot, initial encounter for closed fracture (principal); Y92.9 Unspecified place or not applicable; Y93.9 Activity, unspecified; Y99.0 Civilian activity done for income or pay; Z88.0 Allergy status to penicillin; Z91.040 Latex allergy status; Z79.899 Other long term (current) drug therapy

== ENCOUNTER 2024-11-22 14:14 | Emergency (ER) | payer OTHER ==
[~2024-11-22] VITALS: Ht 172.7 cm; Wt 90.9 kg
[~2024-11-22 14:14] MED LIST changes: +GABA-1171 PO
[2024-11-22 20:30] VITALS: BP 134/68; TEMP 98.1; O2SAT 95
== END 2024-11-22 20:46 | disposition home or self-care (01) ==
LOC: M ED 14:14
DX: S70.02XA Contusion of left hip, initial encounter (principal); Y92.9 Unspecified place or not applicable; Y93.9 Activity, unspecified; Y99.0 Civilian activity done for income or pay; W01.0XXA Fall on same level from slipping, tripping and stumbling without subsequent striking against object, initial encounter; Z88.0 Allergy status to penicillin; Z91.040 Latex allergy status; Z79.899 Other long term (current) drug therapy